=== PATIENT | female | born 1975 | race Caucasian/White ===

== ENCOUNTER 2019-08-15 04:21 | Emergency (ER) | payer SELFPAY ==
[~2019-08-15] VITALS: Ht 162.5 cm; Wt 47.6 kg
[2019-08-15 04:22] VITALS: BP 108/70
[2019-08-15] MEDS ORDERED: AMOXICILLIN500 M2 PO ×2 (04:47→04:49)
[2019-08-15] MEDS ORDERED: Motrin,Rufen800 MG PO ×2 (04:47→04:49)
== END 2019-08-15 05:13 | disposition home or self-care (01) ==
LOC: ED 04:21
DX: H66.92 Otitis media, unspecified, left ear (principal); H92.01 Otalgia, right ear; F17.200 Nicotine dependence, unspecified, uncomplicated; Z88.5 Allergy status to narcotic agent

== ENCOUNTER 2019-08-19 05:47 | Emergency (ER) | payer SELFPAY ==
[~2019-08-19] VITALS: Ht 162.5 cm; Wt 46.7 kg
[~2019-08-19 05:47] MED LIST: AMOXICILLIN500 M2 PO; Motrin,Rufen800 MG PO
[2019-08-19 05:48] VITALS: BP 127/72
[2019-08-19] MEDS ORDERED: BUPRENORPHINE HY8 MG SL (05:51)
[2019-08-19] MEDS ORDERED: AUGMENTIN 875875 MG PO (06:11)
== END 2019-08-19 06:35 | disposition home or self-care (01) ==
LOC: ED 05:47
DX: H66.92 Otitis media, unspecified, left ear (principal); F17.200 Nicotine dependence, unspecified, uncomplicated; Z88.5 Allergy status to narcotic agent; Z79.2 Long term (current) use of antibiotics; Z79.899 Other long term (current) drug therapy

== ENCOUNTER 2020-12-17 06:55 | Emergency (ER) | payer SELFPAY ==
[~2020-12-17] VITALS: Ht 162.5 cm; Wt 49.9 kg
[~2020-12-17 06:55] MED LIST changes: +AUGMENTIN 875875 MG PO; +BUPRENORPHINE HY8 MG SL
[2020-12-17 07:22] VITALS: BP 104/65
[2020-12-17] MEDS ORDERED: IBUPROFEN600 MG PO (10:00)
== END 2020-12-17 10:09 | disposition home or self-care (01) ==
LOC: ED 06:55
DX: M25.572 Pain in left ankle and joints of left foot (principal); Z88.5 Allergy status to narcotic agent; Z79.899 Other long term (current) drug therapy; Z98.51 Tubal ligation status

== ENCOUNTER → 2021-09-02 | Outpatient (CLI) | payer OTHER ==
[~2021-09-02] MED LIST changes: +IBUPROFEN600 MG PO
== END | disposition home or self-care (01) ==
LOC: COVID19 16:48
PROVIDERS: ATTEND Internal Medicine
DX: Z20.822 Contact with and (suspected) exposure to COVID-19 (principal)

== ENCOUNTER → 2023-06-09 | Outpatient (CLI) | payer MEDICAID ==
[~2023-06-09] MED LIST changes: +HYDROXYZINE HCL25 MG PO; +MEDROL DOSEPAK4 MG PO
[2023-06-09 10:13] LABS: BASO # 0.1 10*3/uL (0.0-0.1); BASO % 0.6 % (0.0-1.0); EOS # 0.3 10*3/uL (0.0-0.4); EOS % 3.2 % (1.0-4.0); LYMPH # 2.1 10*3/uL (1.3-4.4); LYMPH % 24.3 % (27.0-41.0); MEAN CELL VOLUME 95.2 fl (81.0-99.0); MEAN CORPUSCULAR HGB 31.5 pg (27.0-31.0); MEAN CORPUSCULAR HGB CONC 33.1 g/dl (33.0-37.0); MONO # 0.7 10*3/uL (0.1-1.0); MONO % 7.7 % (3.0-9.0); NEUT # 5.5 10*3/uL (2.3-7.9); NEUT % 63.8 % (47.0-73.0); PLATELET COUNT AUTOMATED 311 10*3/uL (130-400); RED BLOOD COUNT 4.41 10*6/uL (4.10-5.10); WHITE BLOOD COUNT 8.5 10*3/uL (4.8-10.8)
[2023-06-09 10:40] LABS: TOTAL PROTEIN 7.2 gm/dL (6.0-8.0)
[2023-06-10 05:06] LABS: HBSAG Negative (Negative); HEP B CORE AB, IGM Negative (Negative); HEPATITIS C ANTIBODY Non Reactive (Non Reactive)
[2023-06-10 10:09] LABS: AFP TUMOR MARKER <1.8 ng/mL (0.0-6.4)
[2023-06-10 15:07] LABS: ANTI-SMOOTH MUSCLE ANTIBODY 6 Units (0-19)
== END | disposition home or self-care (01) ==
LOC: LAB 09:26 → US 10:00
PROVIDERS: ATTEND Nurse Practitioner Family
DX: R74.01 Elevation of levels of liver transaminase levels (principal)